=== PATIENT | female | born 1980 | race Caucasian/White ===

== ENCOUNTER 2016-10-14 07:37 | Emergency (ER) | payer SELFPAY ==
[~2016-10-14] VITALS: Ht 154.9 cm; Wt 66.7 kg
[2016-10-14 07:57] VITALS: BP 123/59
--- NOTE | 2016-10-14 08:00 | NUR ---
35/F BIB C/O WHILE HER AND HER WERE BEING INTIMATE APPROX 30 MIN AGO THEY GOT A CUCUMBER STUCK IN HER VAGINA. PT DENIES N/V/D; SKIN IS PINK/WARM/DRY; AAOX4 WITH EVEN AND STEADY GAIT; LUNGS CLEAR BL; HR EVEN AND REGULAR; PT DENIES ANY FEVER, CP, SOB, OR COUGH AT THIS TIME; PATIENT STATES PAIN OF 0/10 AT THIS TIME; VSS; PATIENT POSITIONED FOR COMFORT; HOB ELEVATED; BEDRAILS UP X2; BED DOWN. ER MD MADE AWARE OF PT STATUS.
[2016-10-14 08:58] VITALS: BP 122/73
--- NOTE | 2016-10-14 08:58 | NUR ---
Patient discharged with v/s stable. Written and verbal after care instructions given and explained. Patient verbalized understanding. Ambulatory with steady gait. All questions addressed prior to discharge. Advised to follow up with PMD.
== END 2016-10-14 08:58 | disposition home or self-care (01) ==
LOC: MED 07:37
DX: T19.2XXA Foreign body in vulva and vagina, initial encounter (principal); E11.9 Type 2 diabetes mellitus without complications; X58.XXXA Exposure to other specified factors, initial encounter; Y93.89 Activity, other specified; Y92.89 Other specified places as the place of occurrence of the external cause; Y99.8 Other external cause status